=== PATIENT | female | born 1975 | race African-American/Black ===

== ENCOUNTER 2016-11-05 22:31 | Emergency (ER) | payer OTHER ==
--- NOTE | ~2016-11-05 | CR72 ---
[facility] A Service of [facility] & [facility] RADIOLOGY TEXT RESULTS PATIENT: THALIA AGGARWAL LOCATION: [facility] : [birth year] UNIT #: [id number] AGE: [address]: Reggie Palafox MD SEX: F ORDER DR: [id number] [facility] [address] [place], [place] [address] [id number] E MR#: [id number] Acc #: [id number] NAME: THALIA AGGARWAL : 1975 SEX: F STUDY DATE/TIME: 11/05/2016 21:31 UNIT: [facility] ROOM: STUDY DESCRIPTION: CR Chest Single View Portable Attending Physician: Reggie Palafox M.D. Ordering Physician: Reggie Palafox M.D. Primary Care Physician: Hansel Springer M.D. MEDICAL IMAGING REPORT This report is preliminary unless electronic signature is present EXAM Portable chest, 11/05/2016 HISTORY Chest pain, nausea, shortness of breath, sharp pain in back beginning 1 day ago. FINDINGS The heart is normal in size. There is poor inspiratory result with bibasilar atelectasis. The lungs are otherwise clear. There are no pleural effusions. IMPRESSION No active pulmonary disease. Dictated by... Geovanni Sanford M.D. THIS IS AN ELECTRONICALLY VERIFIED REPORT Geovanni Sanford M.D. at 11/06/2016 10:56 AM ABRAN/arie TD: 11/06/2016 05:19 JOB #: [id number] MEDICAL IMAGING REPORT COPY
--- NOTE | ~2016-11-05 | EKG ---
PATIENT: THALIA AGGARWAL UNIT #: [id number] Ventricular Rate: 81 BPM Atrial Rate: 81 BPM P-R Interval: 132 ms QRS Duration: 82 ms Q-T Interval: 374 ms QTC Calculation(Bezet): 434 ms P [place]: 22 degrees Calculated R [place]: 28 degrees Calculated T [place]: 0 degrees Diagnosis Line: Normal sinus rhythm Diagnosis Line: Normal ECG Diagnosis Line: When compared with ECG of 16-JUN-2013 13:16, Diagnosis Line: (unconfirmed) Diagnosis Line: No significant change was found Diagnosis Line: Confirmed by INOCENCIO PUCKETT MD ([id number]) on 11/07/2016 Diagnosis Line: 11:13:40 AM INTERPRETING MD: LAVERN DIAS
[2016-11-05 21:57] LABS: POC - CKMB 1.2 ng/mL (0.0-7.9); POC - TROPONIN <0.05 ng/mL (<=0.05)
[2016-11-05 22:16] LABS: BASOPHIL# 0.1 X10e3 (0-0.3); BASOPHIL% 1.1 % (0-2.5); EOSINOPHIL# 0.1 X10e3 (0-0.7); EOSINOPHIL% 0.9 % (0.0-7.0); HEMATOCRIT 36.2 % (35.0-45.0); LYMPHOCYTE# 2.2 X10e3 (1.0-3.5); LYMPHOCYTE% 28.2 % (17.0-45.0); MEAN CELL VOLUME 84.1 FL (83-96); MEAN CORPUSCULAR HGB CONC 33.3 g/dL (30-36); MEAN PLATELET VOLUME 8.7 FL (6.5-11.5); MONOCYTE# 0.6 X10e3 (0-1.0); MONOCYTE% 6.9 % (3.0-12.0); NEUTROPHIL% 62.9 % (40-75); PLATELET COUNT 331 X10e3 (140-420); RED CELL DISTRIBUTION WIDTH 14.6 % (11.0-15.5)
[2016-11-05 22:18] LABS: DIFF IND NO
[~2016-11-05 22:31] MED LIST: ACETAMINOPHEN PR; ALBUTEROL17 GM; ALBUTEROL17 GM INH; BENTYL20 M1 PO; BIRTH CONTROL PILL PO; BIRTH CONTROL PO; CLARITIN D PO; FLEXERIL10 M1 PO; FLEXERIL10 MG PO; FLONASE16 GM; IBUPROFEN600 MG PO; IBUPROFEN800 MG PO; LEVAQUIN PO; LIORESAL10 MG PO; LORTAB 5/500 TA1 TA1 PO; LORTAB 7.5-5001 TAB PO; MEDROL DOSEPAK4 MG PO; MEDROL PO; MEDROL4 MG/DOSE- PO; NORFLEX100 M1 PO; ORTHO TRI-7 DAYSX 3 PO; PEPCID PO; PHENERGAN DM1 ML PO; PREDNISONE PO; PREDNISONE10 MG/DOSE PO; PULMICORT200 MCG/AE; PULMICORT200 MCG/AE INH; ROBAXIN500 MG PO; SINGULAIR PO; TIZANIDINE HCL4 M1 PO; TRAMADOL HCL50 M1 PO; TRAMADOL HCL50 M2 PO; TYLENOL #3 PO; VICODIN ES 7.51 EAC1 PO; VOLTAREN50 MG PO; VOLTAREN75 MG PO; XANAX0.5 MG PO; ZITHROMAX PO; ZOFRAN ODT4 MG DOB; ZYRTEC PO; ZYRTEC10 M2 PO
[2016-11-05 22:43] LABS: ALBUMIN SERUM 3.5 g/dL (3.5-5.0); ALKALINE PHOSPHATASE 59 U/L (32-92); ALT (SGPT) 30 U/L (10-40); AST (SGOT) 28 U/L (10-42); BILIRUBIN,TOTAL 0.2 mg/dL (0.2-2.0); BLOOD UREA NITROGEN 7 mg/dL (9-23); CALCIUM SERUM 8.8 mg/dL (8.4-10.2); CARBON DIOXIDE 25 mmol/L (22-31); CHLORIDE 103 mmol/L (100-111); CREATININE SERUM 0.7 mg/dL (0.6-1.4); GLOM FILT RATE Estimated ABOVE60 mL/min (>60); GLUCOSE FASTING 103 mg/dL (70-110); LIPASE 35 U/L (22-51); POTASSIUM 3.4 mmol/L (3.5-5.1); PROTEIN TOTAL SERUM 8.1 g/dL (6.0-8.3); SODIUM 135 mmol/L (135-145)
[2016-11-05 22:52] LABS: BILIRUBIN, DIRECT 0.1 mg/dL (0.0-0.2); BILIRUBIN,INDIRECT 0.1 mg/dL (0.0-0.9)
[2016-11-05 23:33] LABS: POC - CKMB 1.2 ng/mL (0.0-7.9); POC - TROPONIN <0.05 ng/mL (<=0.05)
[2016-11-24] MEDS ORDERED: ALBUTEROL17 GM INH (18:50)
[2016-11-24] MEDS ORDERED: SINGULAIR PO (18:50)
[2016-11-24] MEDS ORDERED: CLARITIN10 M3 (18:50)
[2016-11-24] MEDS ORDERED: BIRTH CONTROL PILL (18:50)
== END 2016-11-06 01:46 | disposition home or self-care (01) ==
LOC: CED 22:31
PROVIDERS: Emergency Medicine
DX: R07.9 Chest pain, unspecified (principal); R10.9 Unspecified abdominal pain; Z88.0 Allergy status to penicillin; Z88.8 Allergy status to other drugs, medicaments and biological substances; Z79.899 Other long term (current) drug therapy
CPT/HCPCS: 36415; 71010; 80048; 80076; 82553; 83690; 84484; 85025; 93005; 99284

== ENCOUNTER 2016-11-24 19:18 | Emergency (ER) | payer OTHER ==
--- NOTE | ~2016-11-24 | CT2 ---
[facility] A Service of [facility] RADIOLOGY TEXT RESULTS PATIENT: THALIA AGGARWAL LOCATION: SED : 77 UNIT #: [id number] AGE: [address]: ARCELIA GIPSON SEX: F ORDER DR: [id number] [place] [id number] E MR#: [id number] Acc #: [id number] NAME: THALIA AGGARWAL : 1975 SEX: F STUDY DATE/TIME: 11/24/2016 20:37 UNIT: SED ROOM: STUDY DESCRIPTION: CT Abd and Pelv W Cont Attending Physician: Arcelia Gipson Ordering Physician: Physician Non-Staff Primary Care Physician: Hansel Springer M.D. MEDICAL IMAGING REPORT This report is preliminary unless electronic signature is present. EXAM CT abdomen and pelvis with IV contrast HISTORY Right lower quadrant pain today. This CT exam was performed with one or more of the following radiation dose reduction techniques: automatic exposure control, adjustment of mA and/or kV according to patient size, and iterative reconstruction. FINDINGS CT abdomen and pelvis was performed with IV contrast. CT abdomen: The lung bases are clear. The liver, gallbladder, spleen, pancreas, kidneys, and adrenal glands are normal. Normal caliber abdominal aorta. No bowel dilatation. No ascites. CT pelvis: Normal appendix. No free fluid. 1.6 cm fibroid in the right uterine fundus. Bilateral tubal ligation clips. IMPRESSION 1. No acute findings in the abdomen or pelvis. 2. Normal appendix. 3. Incidental 1.6 cm fibroid in the right uterine fundus. 1. Dictated by... Momo Moreland M.D. THIS IS AN ELECTRONICALLY VERIFIED REPORT Momo Moreland M.D. at 11/25/2016 12:38 PM TAWNYA/evelyn [facility] A Service of [facility] RADIOLOGY TEXT RESULTS PATIENT: THALIA AGGARWAL LOCATION: SED : 77 UNIT #: [id number] AGE: [address]: ARCELIA GIPSON SEX: F ORDER DR: TD: 11/25/2016 11:32 JOB #: [id number] MEDICAL IMAGING REPORT
[~2016-11-24 19:18] MED LIST changes: +BIRTH CONTROL PILL; +CLARITIN10 M3
[2016-11-24 19:46] LABS: BASOPHIL# 0.1 X10e3 (0-0.3); BASOPHIL% 0.9 % (0-2.5); EOSINOPHIL# 0.1 X10e3 (0-0.7); EOSINOPHIL% 1.5 % (0.0-7.0); HEMATOCRIT 37.1 % (35.0-45.0); HEMOGLOBIN 12.1 gm/dL (12.0-16.0); LYMPHOCYTE% 27.4 % (17.0-45.0); MEAN CELL VOLUME 85.2 FL (83-96); MEAN CORPUSCULAR HEMOGLOBIN 27.8 PG (28-34); MEAN CORPUSCULAR HGB CONC 32.6 g/dL (30-36); MEAN PLATELET VOLUME 8.1 FL (6.5-11.5); MONOCYTE# 0.5 X10e3 (0-1.0); MONOCYTE% 6.5 % (3.0-12.0); NEUTROPHIL# 4.7 X10e3 (1.5-7.1); NEUTROPHIL% 63.7 % (40-75); PLATELET COUNT 367 X10e3 (140-420); RED BLOOD COUNT 4.35 X10e (3.90-5.30); RED CELL DISTRIBUTION WIDTH 14.2 % (11.0-15.5); WHITE BLOOD COUNT 7.3 X10e3 (4.0-10.5)
[2016-11-24 19:47] LABS: URINE SOURCE CLEAN CATCH
[2016-11-24 19:52] LABS: DIFF IND NO
[2016-11-24 19:55] LABS: URINE APPEARANCE CLEAR; URINE BILIRUBIN NEG (NEG); URINE BLOOD 3+ (NEG); URINE COLOR YELLOW; URINE GLUCOSE NEG (NORM); URINE KETONE NEG (NEG); URINE LEUKOCYTE ESTERASE NEG (NEG); URINE NITRATE NEG (NEG); URINE PROTEIN NEG (NEG); URINE SPECIFIC GRAVITY 1.025 (1.003-1.035)
[2016-11-24 19:59] LABS: MICRO INDICATED? YES
[2016-11-24 20:01] LABS: CULTURE INDICATED? NO; URINE BACTERIA NEG (NEG); URINE MUCUS PRESENT; URINE RBC 25-50 /[HPF] (0-2); URINE SQUAMOUS EPITHELIAL CELL OCCAS /[HPF]; URINE WBC 0-2 /[HPF] (0-5)
[2016-11-24 20:05] LABS: ALBUMIN SERUM 3.5 g/dL (3.5-5.0); ALKALINE PHOSPHATASE 55 U/L (32-92); ALT (SGPT) 22 U/L (10-40); AST (SGOT) 22 U/L (10-42); BILIRUBIN,TOTAL 0.2 mg/dL (0.2-2.0); BLOOD UREA NITROGEN 12 mg/dL (9-23); CALCIUM SERUM 8.6 mg/dL (8.4-10.2); CARBON DIOXIDE 26 mmol/L (22-31); CHLORIDE 104 mmol/L (100-111); CREATININE SERUM 0.6 mg/dL (0.6-1.4); GLOM FILT RATE Estimated ABOVE60 mL/min (>60); GLUCOSE FASTING 106 mg/dL (70-110); LIPASE 36 U/L (22-51); POTASSIUM 3.3 mmol/L (3.5-5.1); PROTEIN TOTAL SERUM 8.1 g/dL (6.0-8.3); SODIUM 136 mmol/L (135-145)
[2016-11-24 20:07] LABS: BILIRUBIN, DIRECT <0.1 mg/dL (0.0-0.2); BILIRUBIN,INDIRECT 0.1 mg/dL (0.0-0.9)
== END 2016-11-24 21:43 | disposition home or self-care (01) ==
LOC: SED 19:18
PROVIDERS: Physician Assistant
DX: D25.9 Leiomyoma of uterus, unspecified (principal); J45.909 Unspecified asthma, uncomplicated; Z98.51 Tubal ligation status; Z98.890 Other specified postprocedural states; Z88.0 Allergy status to penicillin; Z88.8 Allergy status to other drugs, medicaments and biological substances
CPT/HCPCS: 36415; 74177; 80048; 80076; 81003; 83690; 84703; 85025; 96361; 96374; 96375; 99284; J2270; J2405; Q9967

== ENCOUNTER 2016-12-08 04:36 | Emergency (ER) | payer OTHER ==
[2016-12-08] MEDS ORDERED: FLEXERIL (06:02)
[2016-12-08] MEDS ORDERED: MOTRIN600 M1 (06:03)
[2016-12-08] MEDS ORDERED: MEDROL4 MG/DOSE- (06:03)
== END 2016-12-08 06:03 | disposition home or self-care (01) ==
LOC: SED 04:36
DX: M54.42 Lumbago with sciatica, left side (principal); Z88.0 Allergy status to penicillin; Z88.6 Allergy status to analgesic agent
CPT/HCPCS: 96372; 99283; J1885

== ENCOUNTER 2016-12-30 13:21 | Emergency (ER) | payer OTHER ==
--- NOTE | ~2016-12-30 | CT2 ---
[facility] A Service of [facility] RADIOLOGY TEXT RESULTS PATIENT: THALIA AGGARWAL LOCATION: SED : [birth year] UNIT #: [id number] AGE: [address]: Laureano Cai MD SEX: F ORDER DR: [id number] [place] [address] [id number] E MR#: [id number] Acc #: [id number] NAME: THALIA AGGARWAL : 1975 SEX: F STUDY DATE/TIME: 12/30/2016 14:05 UNIT: SED ROOM: STUDY DESCRIPTION: CT Abd and Pelv W Cont Attending Physician: Laureano Cai M.D. Referring Physician: Laureano Cai M.D. Ordering Physician: Laureano Cai M.D. Primary Care Physician: Hansel Springer M.D. MEDICAL IMAGING REPORT This report is preliminary unless electronic signature is present. EXAM CT abdomen and pelvis with IV contrast date 12/30/[address] abdomen and pelvis with IV contrast with multiplanar reformats. This CT exam was performed with one or more of the following radiation dose reduction techniques: automatic exposure control, adjustment of mA and/or kV according to patient size, and iterative reconstruction. COMPARISON STUDIES Comparison prior abdominal and pelvic CT 11/24/2016 HISTORY Rectal pain and bleeding since this morning. FINDINGS The lung bases are unremarkable. CT ABDOMEN: The liver and gallbladder are normal. The spleen and pancreas are normal. The kidneys and adrenal glands are normal and the aorta is normal in caliber. CT PELVIS: The appendix is normal. There is no pelvic mass, adenopathy, inflammatory change or abnormal fluid collection, hernia or bowel obstruction. Uterine fibroid noted on the prior study is redemonstrated. IMPRESSION 1. Negative CT abdomen and pelvis. No renal or bowel or biliary obstruction. No mass or adenopathy or inflammatory change. 2. Normal appendix. 1. [facility] A Service of [facility] RADIOLOGY TEXT RESULTS PATIENT: THALIA AGGARWAL LOCATION: SED : [birth year] UNIT #: [id number] AGE: [address]: Laureano Cai MD SEX: F ORDER DR: Dictated by... Juvenal Elise M.D. THIS IS AN ELECTRONICALLY VERIFIED REPORT Juvenal Elise M.D. at 01/01/2017 9:42 AM MICA/liana TD: 12/30/2016 16:38 JOB #: [id number] MEDICAL IMAGING REPORT Page 1 of 1
[2016-12-30 13:21] LABS: BASOPHIL% 0.7 % (0-2.5); EOSINOPHIL# 0.1 X10e3 (0-0.7); EOSINOPHIL% 1.3 % (0.0-7.0); HEMATOCRIT 32.8 % (35.0-45.0); HEMOGLOBIN 10.9 gm/dL (12.0-16.0); LYMPHOCYTE# 1.5 X10e3 (1.0-3.5); LYMPHOCYTE% 28.7 % (17.0-45.0); MEAN CELL VOLUME 83.9 FL (83-96); MEAN CORPUSCULAR HGB CONC 33.4 g/dL (30-36); MEAN PLATELET VOLUME 7.9 FL (6.5-11.5); MONOCYTE# 0.3 X10e3 (0-1.0); MONOCYTE% 5.8 % (3.0-12.0); NEUTROPHIL# 3.4 X10e3 (1.5-7.1); NEUTROPHIL% 63.5 % (40-75); PLATELET COUNT 301 X10e3 (140-420); RED BLOOD COUNT 3.91 X10e (3.90-5.30); RED CELL DISTRIBUTION WIDTH 14.4 % (11.0-15.5); WHITE BLOOD COUNT 5.4 X10e3 (4.0-10.5)
[~2016-12-30 13:21] MED LIST changes: +FLEXERIL; +MEDROL4 MG/DOSE-; +MOTRIN600 M1
[2016-12-30 13:26] LABS: DIFF IND NO
[2016-12-30 13:39] LABS: ALBUMIN SERUM 3.4 g/dL (3.5-5.0); ALKALINE PHOSPHATASE 54 U/L (32-92); ALT (SGPT) 22 U/L (10-40); AST (SGOT) 21 U/L (10-42); BILIRUBIN,TOTAL 0.1 mg/dL (0.2-2.0); BLOOD UREA NITROGEN 8 mg/dL (9-23); BUN/CREATININE RATIO 11.42; CALCIUM SERUM 8.6 mg/dL (8.4-10.2); CARBON DIOXIDE 25 mmol/L (22-31); CHLORIDE 106 mmol/L (100-111); CREATININE SERUM 0.7 mg/dL (0.6-1.4); GLOM FILT RATE Estimated 125.6 mL/min (>60); GLUCOSE FASTING 112 mg/dL (70-110); PROTEIN TOTAL SERUM 7.5 g/dL (6.0-8.3); SODIUM 136 mmol/L (135-145)
[2016-12-30 13:45] LABS: BILIRUBIN, DIRECT <0.1 mg/dL (0.0-0.2)
[2016-12-30 13:55] LABS: URINE SOURCE CLEAN CATCH
[2016-12-30 14:00] LABS: URINE APPEARANCE CLEAR; URINE BILIRUBIN NEG (NEG); URINE BLOOD NEG (NEG); URINE COLOR YELLOW; URINE GLUCOSE NEG (NORM); URINE KETONE NEG (NEG); URINE LEUKOCYTE ESTERASE NEG (NEG); URINE NITRATE NEG (NEG); URINE PH 7.5 (5-8); URINE PROTEIN NEG (NEG); URINE SPECIFIC GRAVITY <=1.005 (1.003-1.035); URINE UROBILINOGEN 0.2 MG/DL (NORM)
[2016-12-30 14:05] LABS: MICRO INDICATED? NO
== END 2016-12-30 15:33 | disposition home or self-care (01) ==
LOC: SED 13:21
PROVIDERS: Emergency Medicine
DX: K62.5 Hemorrhage of anus and rectum (principal); Z98.51 Tubal ligation status; Z88.0 Allergy status to penicillin; Z88.8 Allergy status to other drugs, medicaments and biological substances
CPT/HCPCS: 36415; 74177; 80048; 80076; 81003; 84703; 85025; 96361; 96374; 96375; 99284; J2405; Q9967

== ENCOUNTER 2017-04-30 23:03 | Observation (INO) | payer OTHER ==
[~2017-04-30] VITALS: Ht 152.4 cm; Wt 88.0 kg
--- NOTE | ~2017-04-30 | DS ---
Unit #: [id number] #: [id number] Patient: THALIA AGGARWAL [id number] [address] [address] [id number] I MR#: [id number] NAME: THALIA AGGARWAL. ROOM: 463 Age: 42 Sex: F Admission Date: 05/01/2017 : 1975 Discharge Date: 05/02/2017 Attending Physician: Boyd Phillips M.D. Primary Care Physician: Hansel Springer M.D. DISCHARGE SUMMARY PRIMARY DIAGNOSIS Colitis. SECONDARY DIAGNOSES 1. Seasonal allergies with allergic sinusitis. 2. Headache secondary to the allergic sinusitis. HOSPITAL COURSE Patient was placed in the hospital with diarrhea and lightheadedness, was placed on IV fluids and 23-hour observation. Consultation was obtained with Dr. Richards with gastroenterology who performed a colonoscopy on the patient on the day of discharge. He recommended 14 days of Flagyl. C. diff. and other bacterial markers in the patient's stool were negative. He recommended followup in his office in six weeks and patient was given the phone number to call, [phone]. The patient was also complaining of some sinus headache and has a long history of seasonal allergies. She was given a script for Nasonex to use along with her home Singulair and antihistamine as needed. DISCHARGE DISPOSITION To home. DISCHARGE STATUS Stable. DISCHARGE ACTIVIY As henny. DISCHARGE DIET Unrestricted. WORK RESTRICTIONS She is advised to stay off of work until Friday when she can return to work without any restrictions. DISCHARGE FOLLOWUP Follow up with: 1. GI in six weeks and 2. Her PCP in two to three weeks. DISCHARGE MEDICATIONS 1. Albuterol inhaler two puffs q.4 h. p.r.n. shortness of breath. 2. Tylenol 650 p.o. q.4 h. p.r.n. Unit #: [id number] #: [id number] Patient: THALIA AGGARWAL 3. Flagyl 500 mg p.o. t.i.d. 4. Singulair 10 mg p.o. daily p.r.n. 5. Motrin 800 mg p.o. b.i.d. p.r.n. 6. Nasonex one spray to each nostril daily. Dictated by... [place]/tony TD: 05/04/2017 18:43 JOB #: [id number] DISCHARGE SUMMARY Page 1 of 1 X Boyd Phillips MD X DISCHARGE SUMMARY
--- NOTE | ~2017-04-30 | EKG ---
PATIENT: THALIA AGGARWAL UNIT #: [id number] Ventricular Rate: 79 BPM Atrial Rate: 79 BPM P-R Interval: 156 ms QRS Duration: 72 ms Q-T Interval: 392 ms QTC Calculation(Bezet): 449 ms P [place]: 19 degrees Calculated R [place]: 4 degrees Calculated T [place]: 6 degrees Diagnosis Line: Normal sinus rhythm Diagnosis Line: Normal ECG Diagnosis Line: No previous ECGs available Diagnosis Line: Confirmed by KIKI JARQUIN MD ([id number]) on 05/02/2017 Diagnosis Line: 4:55:31 PM INTERPRETING MD: BRITTON DIAS
--- NOTE | ~2017-04-30 | CT71 ---
[facility] A Service of [facility] & [facility] RADIOLOGY TEXT RESULTS PATIENT: THALIA AGGARWAL LOCATION: [place] [address] : [birth year] UNIT #: [id number] AGE: [address]: Boyd Phillips MD SEX: F ORDER DR: [id number] [facility] [address] [place], [place] [address] [id number] I MR#: [id number] Acc #: [id number] NAME: THALIA AGGARWAL. : 1975 SEX: F STUDY DATE/TIME: 05/01/2017 2:40 UNIT: [facility] ROOM: [facility] STUDY DESCRIPTION: CT Head Wo Contrast Attending Physician: Boyd Phillips M.D. Ordering Physician: Alden Scott D.O. Primary Care Physician: Hansel Springer M.D. MEDICAL IMAGING REPORT This report is preliminary unless electronic signature is present EXAM CT head, noncontrast, 05/01/2017 HISTORY 42-year-old female in the ED complaining of new onset headaches and dizziness today. TECHNIQUE CT examination of the head without IV contrast. The CT exam was performed with one or more of the following radiation dose reduction techniques: automatic exposure control, adjustment of mA and/or kV according to patient size, and iterative reconstruction. FINDINGS The examination is negative. No evidence of intracranial hemorrhage, mass, mass effect, cerebral edema, hydrocephalus or additional abnormality. IMPRESSION Negative head CT examination. Dictated by... Jose A Maddox M.D. THIS IS AN ELECTRONICALLY VERIFIED REPORT Jose A Maddox M.D. at 05/01/2017 9:49 PM RGW/nory TD: 05/01/2017 08:09 JOB #: [id number] [facility] A Service of [facility] & [facility] RADIOLOGY TEXT RESULTS PATIENT: THALIA AGGARWAL LOCATION: [place] [address] : [birth year] UNIT #: [id number] AGE: [address]: Boyd Phillips MD SEX: F ORDER DR: MEDICAL IMAGING REPORT Page 1 of 1 COPY
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
--- NOTE | ~2017-04-30 | OR ---
Unit #: [id number] #: [id number] Patient: THALIA AGGARWAL [id number] [address] [place], [place] [address] [id number] I MR#: [id number] NAME: THALIA AGGARWAL. ROOM: 463 Date of Procedure: 05/01/2017 Admission Date: 05/01/2017 Surgeon: Saleem Richards M.D. : 1975 Attending Physician: Boyd Phillips M.D. Primary Care Physician: Hansel Springer M.D. OPERATIVE REPORT PRIMARY CARE PHYSICIAN Hansel Springer M.D. PREOPERATIVE DIAGNOSES Bloody diarrhea and CT findings suggestive of colitis. PROCEDURE PERFORMED Colonoscopy up to cecum and terminal ileum. POSTOPERATIVE DIAGNOSES The patient had classic changes of pseudomembranous colitis involving the sigmoid and descending colon. Biopsies were obtained for histology. In addition, stool aspirate was sent for C diff colitis. RECOMMENDATIONS The patient is being started on intravenous Flagyl. It can be switched to oral Flagyl tomorrow. SEDATION USED MAC. DESCRIPTION OF PROCEDURE Following detailed explanation of the potential risks and complications of a colonoscopy, namely perforation, bleeding, and complication related to sedation, the patient was brought to GI lab and laid in the left lateral decubitus position. A digital rectal examination was performed, which was normal. Lubricated tip of the Olympus video colonoscope was inserted through the anus and advanced under direct vision. The scope was advanced past rectosigmoid into descending colon. The patient was noted to have multiple yellowish-white circumscribed exudates in the sigmoid and descending colon, highly suggestive of pseudomembranous colitis with normal intervening mucosa. At places, the ulcers were coalescing. The transverse colon and right colon were relatively spared. The scope tip was then navigated all the way up to cecum with visualization of the ileocecal valve and the appendiceal orifice. Preparation was excellent with good visualization and photodocumentation was obtained. Last few inches of the terminal ileum were also visualized after intubation of the ileocecal valve and appeared normal. Successive segments of the colonic mucosa were examined upon withdrawal and appeared unremarkable except for the changes noted earlier. Biopsies were obtained from the sigmoid and descending colon and sent for histology. In addition, stool aspirate was also obtained. Unfortunately, this was highly diluted with colonic prep Unit #: [id number] #: [id number] Patient: THALIA AGGARWAL and may be falsely negative. The patient did not have any diverticulosis, polyps, or hemorrhoids. The scope was then withdrawn and the patient returned to recovery area. She tolerated the procedure without any postprocedure complications. Dictated by... [place]/becca TD: 05/04/2017 12:18 JOB #: [id number] CC: . OPERATIVE REPORT Page 1 of 1 X Saleem Richards MD X PROCEDURE OPERATIVE NOTE
--- NOTE | ~2017-04-30 | CT2 ---
[facility] A Service of [facility] & [facility] RADIOLOGY TEXT RESULTS PATIENT: THALIA AGGARWAL LOCATION: [facility] 463-01 : [birth year] UNIT #: [id number] AGE: [address]: Boyd Phillips MD SEX: F ORDER DR: [id number] [facility] [address] [place], [place] [address] [id number] MR#: [id number] Acc #: [id number] NAME: THALIA AGGARWAL. : 1975 SEX: F STUDY DATE/TIME: 05/01/2017 2:42 UNIT: [facility] ROOM: 3 STUDY DESCRIPTION: CT Abd and Pelv W Cont Attending Physician: Boyd Phillips M.D. Ordering Physician: Alden Scott D.O. Primary Care Physician: Hansel Springer M.D. MEDICAL IMAGING REPORT This report is preliminary unless electronic signature is present EXAM CT abdomen and pelvis with contrast, 05/01/2017 HISTORY 42-year-old female in the ED with multiple complaints. She notes headaches and dizziness beginning today. She notes a 2-month history of generalized abdomen pain with nausea and diarrhea. Some rectal bleeding. TECHNIQUE CT examination of the abdomen and pelvis was performed with IV contrast. GI contrast was not ordered, limiting evaluation of the GI tract. This CT exam was performed with one or more of the following radiation dose reduction techniques: Automatic exposure control, adjustment of mA and/or kV according to patient size, and iterative reconstruction. FINDINGS ABDOMEN FINDINGS: The examination shows wall thickening involving segments of the colon, including the cecum and ascending colon as well as the descending colon. This is poorly assessed without GI contrast administration. Remaining segments of colon are unremarkable. The findings suggest mild acute colitis. Considerations include inflammatory bowel disease as well as infectious colitis. No evidence of bowel obstruction, drainable abscess, or bowel perforation. Small bowel is normal in caliber. The appendix is normal. Liver, pancreas, spleen and kidneys are normal in size and appearance. Contracted gallbladder. No bile duct dilatation. PELVIS FINDINGS: Small upper uterine leiomyoma. Uterus, ovaries, urinary bladder and rectum are otherwise negative. No inguinal hernia. Limited lung base images show no active disease in the lower chest. [facility]. [facility] A Service of [facility] & [facility] RADIOLOGY TEXT RESULTS PATIENT: THALIA AGGARWAL LOCATION: [facility] 463-01 : [birth year] UNIT #: [id number] AGE: [address]: Boyd Phillips MD SEX: F ORDER DR: IMPRESSION 1. CT findings suggesting long segment or multisegment mild colitis as detailed above. Consider inflammatory bowel disease or infectious colitis. No evidence of abscess, bowel obstruction, or bowel perforation. The appendix is normal. 2. The remainder of the examination is negative. Dictated by... Jose A Maddox M.D. THIS IS AN ELECTRONICALLY VERIFIED REPORT Jose A Maddox M.D. at 05/01/2017 9:49 PM MARIE/malaika TD: 05/01/2017 09:05 JOB #: [id number] MEDICAL IMAGING REPORT Page 1 of 1 COPY
[2017-05-01 01:15] LABS: POC - CKMB 1.3 ng/mL (0.0-7.9); POC - TROPONIN <0.05 ng/mL (<=0.05)
[2017-05-01 01:26] LABS: BASOPHIL# 0.1 X10e3 (0-0.3); BASOPHIL% 0.9 % (0-2.5); DIFF IND NO; EOSINOPHIL# 0.1 X10e3 (0-0.7); EOSINOPHIL% 1.8 % (0.0-7.0); HEMOGLOBIN 11.8 gm/dL (12.0-16.0); LYMPHOCYTE% 24.2 % (17.0-45.0); MEAN CORPUSCULAR HEMOGLOBIN 28.4 PG (28-34); MEAN CORPUSCULAR HGB CONC 33.8 g/dL (30-36); MEAN PLATELET VOLUME 7.9 FL (6.5-11.5); MONOCYTE# 0.4 X10e3 (0-1.0); MONOCYTE% 4.8 % (3.0-12.0); NEUTROPHIL# 5.7 X10e3 (1.5-7.1); NEUTROPHIL% 68.3 % (40-75); PLATELET COUNT 424 X10e3 (140-420); RED BLOOD COUNT 4.16 X10e (3.90-5.30); RED CELL DISTRIBUTION WIDTH 14.1 % (11.0-15.5); WHITE BLOOD COUNT 8.3 X10e3 (4.0-10.5)
[2017-05-01 01:31] LABS: URINE SOURCE CLEAN CATCH
[2017-05-01 01:39] LABS: URINE APPEARANCE CLEAR; URINE BILIRUBIN NEG (NEG); URINE BLOOD NEG (NEG); URINE COLOR YELLOW; URINE GLUCOSE NEG (NEG); URINE KETONE NEG (NEG); URINE LEUKOCYTE ESTERASE NEG (NEG); URINE NITRATE NEG (NEG); URINE PH 6.5 (5-8); URINE PROTEIN NEG (NEG); URINE SPECIFIC GRAVITY 1.018 (1.003-1.035); URINE UROBILINOGEN 0.2 MG/DL (NEG)
[2017-05-01 01:42] LABS: INR 0.9; PROTHROMBIN TIME (PATIENT) 10.2 SECONDS (10.0-11.7)
[2017-05-01 01:49] LABS: ALBUMIN SERUM 3.3 g/dL (3.5-5.0); ALKALINE PHOSPHATASE 66 U/L (32-92); ALT (SGPT) 17 U/L (10-40); AST (SGOT) 19 U/L (10-42); BILIRUBIN, DIRECT <0.1 mg/dL (0.0-0.2); BILIRUBIN,TOTAL <0.1 mg/dL (0.2-2.0); BLOOD UREA NITROGEN 8 mg/dL (9-23); BUN/CREATININE RATIO 11.42; CALCIUM SERUM 8.8 mg/dL (8.4-10.2); CARBON DIOXIDE 23 mmol/L (22-31); CHLORIDE 107 mmol/L (100-111); CREATININE SERUM 0.7 mg/dL (0.6-1.4); GLOM FILT RATE Estimated 124.7 mL/min (>60); GLUCOSE FASTING 97 mg/dL (70-110); LIPASE 25 U/L (22-51); POTASSIUM 3.8 mmol/L (3.5-5.1); PROTEIN TOTAL SERUM 8.1 g/dL (6.0-8.3); SODIUM 137 mmol/L (135-145)
[2017-05-01 01:58] LABS: CULTURE INDICATED? NO
[2017-05-01 03:32] LABS: POC - CKMB <1.0 ng/mL (0.0-7.9); POC - TROPONIN <0.05 ng/mL (<=0.05)
[2017-05-01 12:21] LABS: BASOPHIL% 0.2 % (0-2.5); EOSINOPHIL# 0.2 X10e3 (0-0.7); EOSINOPHIL% 2.3 % (0.0-7.0); HEMATOCRIT 32.6 % (35.0-45.0); HEMOGLOBIN 10.8 gm/dL (12.0-16.0); LYMPHOCYTE# 1.8 X10e3 (1.0-3.5); LYMPHOCYTE% 26.8 % (17.0-45.0); MEAN CELL VOLUME 84.8 FL (83-96); MEAN PLATELET VOLUME 7.6 FL (6.5-11.5); MONOCYTE# 0.4 X10e3 (0-1.0); MONOCYTE% 5.8 % (3.0-12.0); NEUTROPHIL# 4.3 X10e3 (1.5-7.1); NEUTROPHIL% 64.9 % (40-75); PLATELET COUNT 405 X10e3 (140-420); RED BLOOD COUNT 3.85 X10e (3.90-5.30); RED CELL DISTRIBUTION WIDTH 14.6 % (11.0-15.5); WHITE BLOOD COUNT 6.5 X10e3 (4.0-10.5)
[2017-05-01 12:23] LABS: DIFF IND NO
[2017-05-01 12:45] LABS: BUN/CREATININE RATIO 7.14; CALCIUM SERUM 8.4 mg/dL (8.4-10.2); CREATININE SERUM 0.7 mg/dL (0.6-1.4); GLOM FILT RATE Estimated 124.7 mL/min (>60); POTASSIUM 3.5 mmol/L (3.5-5.1)
[2017-05-01 12:56] LABS: THYROID STIMULATING HORMONE 3.61 uIU/ml (0.34-5.60)
[2017-05-01 13:03] LABS: FREE THYROXIN (T4) 0.71 ng/dL (0.58-1.64)
[2017-05-02 02:16] LABS: BASOPHIL% 0.6 % (0-2.5); EOSINOPHIL# 0.1 X10e3 (0-0.7); EOSINOPHIL% 1.6 % (0.0-7.0); LYMPHOCYTE% 26.8 % (17.0-45.0); MEAN CELL VOLUME 83.3 FL (83-96); MEAN CORPUSCULAR HEMOGLOBIN 27.7 PG (28-34); MEAN CORPUSCULAR HGB CONC 33.3 g/dL (30-36); MEAN PLATELET VOLUME 7.3 FL (6.5-11.5); MONOCYTE# 0.3 X10e3 (0-1.0); MONOCYTE% 4.5 % (3.0-12.0); NEUTROPHIL% 66.5 % (40-75); PLATELET COUNT 436 X10e3 (140-420); RED BLOOD COUNT 3.96 X10e (3.90-5.30); RED CELL DISTRIBUTION WIDTH 14.2 % (11.0-15.5); WHITE BLOOD COUNT 7.6 X10e3 (4.0-10.5)
[2017-05-02 02:18] LABS: DIFF IND NO
[2017-05-02 02:44] LABS: ALBUMIN SERUM 3.3 g/dL (3.5-5.0); BILIRUBIN,TOTAL 0.6 mg/dL (0.2-2.0); BUN/CREATININE RATIO 8.57; CALCIUM SERUM 8.9 mg/dL (8.4-10.2); CREATININE SERUM 0.7 mg/dL (0.6-1.4); GLOM FILT RATE Estimated 124.7 mL/min (>60); POTASSIUM 4.1 mmol/L (3.5-5.1); PROTEIN TOTAL SERUM 7.6 g/dL (6.0-8.3)
[2017-05-02] MEDS ORDERED: NASONEX17 GM (14:36)
[2017-05-02] MEDS ORDERED: FLAGYL PO (14:37)
[2017-05-02] MEDS ORDERED: IBUPROFEN PO (14:41)
[2017-05-02] MEDS ORDERED: ACETAMINOPHEN PO (14:42)
== END 2017-05-02 16:00 | disposition home or self-care (01) ==
LOC: CED 23:03 → CEDOF 05-01 04:20 → C4C 05-01 04:20 → CEDOF 05-01 04:26 → CED 05-01 04:26 → C4C 05-01 05:35 → CEDOF 05-01 05:35 → C4C 05-01 07:45
PROVIDERS: Emergency Medicine; Internal Medicine; Internal Medicine Gastroenterology
DX: K52.9 Noninfective gastroenteritis and colitis, unspecified (principal); M54.16 Radiculopathy, lumbar region; Z88.0 Allergy status to penicillin; Z88.8 Allergy status to other drugs, medicaments and biological substances; Z79.899 Other long term (current) drug therapy; Z98.51 Tubal ligation status
CPT/HCPCS: 36415; 70450; 74177; 80048; 80053; 80076; 81003; 82553; 83690; 84439; 84443; 84484; 84703; 85025; 85610; 87045; 87427; 87493; 87899; 88305; 93005; 94640; 94760; 96360; 99285; G0378; J2405; Q9967